=== PATIENT | male | born 1950 | race Caucasian/White ===

== ENCOUNTER → 2016-08-16 | Outpatient (CLI) | payer OTHER ==
--- NOTE | 2016-08-16 16:10 | CPEKG ---
Heart Rate: 55 RR Interval: 1091 P-R Interval: 188 QRSD Interval: 94 QT Interval: 384 QTC Interval: 368 P [place]: 2 QRS [place]: 69 T Wave [place]: -13 EKG Severity - BORDERLINE ECG - EKG Impression: SINUS RHYTHM EKG Impression: BORDERLINE,NONSPECIFIC ST ABNORMALITIES, INFERIOR LEADS Electronically Signed By: Fransico Powell 17-Aug-2016 12:25:25
== END ==
LOC: FCP 15:56
PROVIDERS: ATTEND Otolaryngology
DX: Z01.810 Encounter for preprocedural cardiovascular examination (principal)

== ENCOUNTER 2016-08-21 05:43 | Observation (INO) | payer OTHER ==
--- NOTE | 2016-08-11 18:07 | GHP ---
[f rep st] PREOP HISTORY AND PHYSICAL IDENTIFYING DATA: This is a 65-year-old. CHIEF COMPLAINT: Left parotid mass. HISTORY OF PRESENT ILLNESS: He has had a left preauricular, angle of the mandible mass for the last 10 years. It has slowly grown. He will undergo left lateral parotidectomy. He is otherwise in good health. PAST MEDICAL HISTORY: No heart attacks or strokes. MEDICATIONS: Viagra p.r.n. ALLERGIES: No known drug allergies. FAMILY HISTORY: Negative for any bleeding disorders or difficulty with anesthesia. PHYSICAL EXAMINATION: GENERAL: No acute distress. HEENT: A 3 cm mass in the left parotid. The oral cavity and oropharynx show no mucosal lesion. Neck without thyromegaly or lymphadenopathy. Facial strength is equal. LUNGS: Clear without wheezing. HEART: Regular rate and rhythm. No murmurs, gallops, or rubs. IMPRESSION: Left parotid mass. RECOMMENDATIONS: 1. Left lateral parotidectomy. I had a detailed discussion with the patient regarding the risks of bleeding, infection, anesthesia, damage to the facial nerve, salivary fistula, Enoch syndrome. We talked about the fact that the left earlobe would be permanently numb. We talked about the alternatives to this needle biopsy and a 2nd opinion. We talked about the benefits of removing it and send it to Pathology. He understands, agrees to proceed, and all questions were answered. 2. We will get a 12-lead EKG. /[id number]/MODL MTDD
[2016-08-21] MEDS ORDERED: ceFAZolin 2 GM/DEXTROSE 100 ML IV ONE (06:00)
[2016-08-21] MEDS ORDERED: LIDOCAINE 1% 5 ML SDV ONE (06:46)
[2016-08-21] MEDS ORDERED: BUPIVACAINE 0.5% 30 ML SDV ONE (07:01)
[2016-08-21] MEDS ORDERED: THROMBIN (RECOMBINANT) 5,000 UNIT VIAL TP ONE (07:01)
[2016-08-21] MEDS ORDERED: LR 1,000 ML IV ONE (07:02)
[2016-08-21] MEDS ORDERED: LIDOCAINE 1% 5 ML SDV ID PRN (07:02)
[2016-08-21] MEDS ORDERED: MIDAZOLAM 2 MG/2 ML VIAL ONE (07:11)
[2016-08-21] MEDS ORDERED: REMIFENTANIL HCL 1 MG VIAL ONE (07:11)
[2016-08-21] MEDS ORDERED: fentaNYL 250 MCG/5 ML INJ ONE (07:12)
[2016-08-21] MEDS ORDERED: PROPOFOL/EMULSION 500 MG/50 ML BOTTLE IV ONE (07:12)
[2016-08-21] MEDS ORDERED: PROPOFOL 200 MG/20 ML VIAL ONE ×4 (07:12→10:01)
[2016-08-21] MEDS ORDERED: LIDO/EPI 1% **Not for Epidural 20 ML MDV ONE (07:31)
[2016-08-21] MEDS ORDERED: LIDOCAINE 2% 5 ML SDV ONE (08:00)
[2016-08-21] MEDS ORDERED: DEXAMETHASONE 4 MG/ML VIAL ONE (08:00)
[2016-08-21] MEDS ORDERED: GLYCOPYRROLATE 0.2 MG/1 ML VIAL ONE (08:01)
[2016-08-21] MEDS ORDERED: ONDANSETRON 4 MG/2 ML VIAL ONE (08:06)
[2016-08-21] MEDS ORDERED: fentaNYL 100 MCG/2 ML INJ ONE (08:50)
[2016-08-21] MEDS ORDERED: ACETAMINOPHEN 500 MG TAB PO PRN (10:42)
[2016-08-21] MEDS ORDERED: NS W/ 20 KCl/L 1,000 ML IV SCH (10:45)
--- NOTE | 2016-08-21 11:38 | GOP ---
DATE OF OPERATION: 08/21/2016 SURGEON: Shakir Merino MD WEATHER FORCASTER: Micheal Bonilla MD ANESTHESIA: General endotracheal. PREOPERATIVE DIAGNOSIS: Left parotid mass. POSTOPERATIVE DIAGNOSIS: Pleomorphic adenoma. PROCEDURE PERFORMED: Left lateral parotidectomy with identification of the facial nerve. FINDINGS: 1. Positive identification of the facial nerve. 2. 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 3. Specimens as above. ESTIMATED BLOOD LOSS: 25 mL. DESCRIPTION OF PROCEDURE: The patient was placed in a supine position and orally endotracheally int ubated. We marked an incision in his left preauricular area and into his left neck. This was marke d in the preoperative holding area as well. We injected with 1% lidocaine with 1:100,000 epinephrin e. He was thoroughly prepped and draped. A 15 blade scalpel was used to come through the skin. We dissected over the parotid fascia. We freed off the sternocleidomastoid muscle and the tail of the parotid. We came down the cartilage over the mastoid tip and identified the tragal pointer. Using dissection 1 cm deep and inferior to the tragal pointer, we identified the facial nerve. The tumor was in the midportion of the parotid, and we found the mandibular branch and dissected superiorly, rotating the tumor superiorly, as we identified branches as we went. We did have to identify every branch as we went superior, including the buccal zygomatic eye branches and the frontal branches. O nce we identified the frontal branch, we removed the tumor and sent it to Pathology for frozen secti on analysis. This showed a 2.5 cm pleomorphic adenoma with clear margins. Hemostasis was achieved with bipolar. The wound was copiously irrigated and suctioned. A 10-Danish drain was placed deep t o the parotid. The drain was sewn in position with 3-0 nylon. The deep tissue was closed with 3-0 chromic. A running 5-0 nylon was used on the skin. He tolerated the procedure well and was in good condition at the end of the procedure. /[id number]/MODL
[2016-08-21] MEDS ORDERED: PETROLAT,WHT/MIN OIL/SOD CHL 3.5 GM OPHT.OINT EACHEYE PRN (17:43)
[2016-08-22 05:28] VITALS: TEMP 98.4; O2SAT 94
[2016-08-22 07:36] VITALS: BP 143/84; PULSE 62; RESP 18
[2016-08-22] MEDS ORDERED: FLU VACC QS 2016-17(3-64YR)/PF 0.5 ML SYR (FLUARIX QUAD) IM ONE (07:53)
--- NOTE | 2016-08-22 08:49 | SOAPPROG ---
SOAP Progress Note Assessment/Plan: Assessment: 65 year old male POD 1 s/p left parotidectomy. Doing well. Still with facial nerve weakness on left. Pain is under control. - Drain removed - D/c home this AM - He has prescription for percocet to go home with as well as lacrilube -- I discussed with patient to use lacrilube before bed and tape left eye shut - Follow-up 1 week for suture removal 08/22/16 08:47 Subjective: POD 1 s/p left parotidectomy. Doing well. Pain under control. Objective: Vital Signs Temp Pulse Resp BP Pulse Ox 36.9 C 62 18 143/84 H 94 08/22/16 07:35 08/22/16 07:35 08/22/16 07:35 08/22/16 07:35 08/22/16 07:35 08/21/16 08/22/16 08/23/16 05:59 05:59 05:59 Intake Total 2785 Output Total 890 Balance 1895 Voice strong, no stridor Still with facial nerve weakness on the left -- incomplete eye closure OP normal Drain output of 40 since surgery -- drain removed Incision clean/dry/intact ICD10 Worksheet Patient Problems: Problems Problem Status Onset H/O parotidectomy Acute - ICD10 Problem Qualifiers (1) H/O parotidectomy
== END 2016-08-22 10:32 | disposition home or self-care (01) ==
LOC: F3E 05:43
PROVIDERS: ADMIT Otolaryngology; ATTEND Otolaryngology
PROC: 0CB90ZX Excision of Left Parotid Gland, Open Approach, Diagnostic (ICD-10-PCS; principal; 2016-08-21 07:14)
DX: D11.9 Benign neoplasm of major salivary gland, unspecified (principal)
CPT/HCPCS: 42405; 90471; G0378; G0008; J0690; J1100; J2250; J2405; J2704; J3010

== ENCOUNTER 2017-10-01 17:00 | Observation (INO) | payer OTHER ==
--- NOTE | 2017-10-01 17:14 | CPEKG ---
Heart Rate: 94 RR Interval: 638 P-R Interval: 188 QRSD Interval: 88 QT Interval: 360 QTC Interval: 451 P [place]: 72 QRS [place]: 49 T Wave [place]: -7 EKG Severity - BORDERLINE ECG - EKG Impression: SINUS RHYTHM EKG Impression: BORDERLINE T ABNORMALITIES, INFERIOR LEADS EKG Impression: Similar to previous Electronically Signed By: Hansel Rosenbaum 01-Oct-2017 17:37:18
[2017-10-01] MEDS ORDERED: NS 2,400 ML IV ONE (17:33)
--- NOTE | 2017-10-01 17:36 | EDPHY ---
H & P Stated Complaint: chest pain starting around 1300 Time Seen by Provider: 10/01/17 17:21 HPI/ROS: CHIEF COMPLAINT: Chest pain HISTORY OF PRESENT ILLNESS: Patient is a 67-year-old man who comes to the emergency department with his significant other complaining of pleuritic chest pain on the left side. The patient was seen at an urgent care in [place] on Sunday and had a chest x-ray which revealed a right upper lobe pneumonia. He had a fever and shortness of breath and cough at the time. He was started on azithromycin. Today he began complaining of left-sided pain with deep inspiration. His states that he was short of breath and can't ink and tell he took some Percocet and his pain improved. He also fever of 100.8 today. He was seen at Dr. Flores's office who sent him here to rule out PE. The patient did have a rotator cuff surgery 2 months ago here as well as multiple teeth removal 1 month ago. He was on amoxicillin for the procedure. He does not have any cardiac history. No leg pain or swelling. No diaphoresis or nauseous. REVIEW OF SYSTEMS: Constitutional: denies: chills, fever, recent illness, recent injury EENTM: denies: blurred vision, double vision, nose congestion Respiratory: See HPI Cardiac: See HPI Gastrointestinal/Abdominal: denies: abdominal pain, diarrhea, nausea, vomiting, blood streaked stools Genitourinary: denies: dysuria, frequency, hematuria, pain Musculoskeletal: denies: joint pain, muscle pain Skin: denies: lesions, rash, jaundice, bruising Neurological: denies: headache, numbness, paresthesia, tingling, dizziness, weakness Hematologic/Lymphatic: denies: blood clots, easy bleeding, easy bruising Immunologic/allergic: denies: HIV/AIDS, transplant EXAM: GENERAL: Well-appearing, well-nourished and in no acute distress. HEAD: Atraumatic, normocephalic. EYES: Pupils equal round and reactive to light, extraocular movements intact, sclera anicteric, conjunctiva are normal. ENT: TMs normal, nares patent, oropharynx clear without exudates. Moist mucous membranes. NECK: Normal range of motion, supple without lymphadenopathy or JVD. LUNGS: Breath sounds clear to auscultation bilaterally and equal. No wheezes rales or rhonchi. HEART: Regular rate and rhythm without murmurs, rubs or gallops. ABDOMEN: Soft, nontender, normoactive bowel sounds. No guarding, no rebound. No masses appreciated. BACK: No CVA tenderness, no spinal tenderness, step-offs or deformities EXTREMITIES: Normal range of motion, no pitting or edema. No clubbing or cyanosis. NEUROLOGICAL: Cranial nerves II through XII grossly intact. Normal speech, normal gait. 5/5 strength, normal movement in all extremities, normal sensation PSYCH: Normal mood, normal affect. SKIN: Warm, dry, normal turgor, no visible rashes or lesions. Source: Patient Exam Limitations: No limitations - Medical/Surgical History Hx Asthma: No Hx Chronic Respiratory Disease: No Hx Diabetes: No Hx Cardiac Disease: No Hx Renal Disease: No Hx Cirrhosis: No Hx Alcoholism: No Hx HIV/AIDS: No Hx Splenectomy or Spleen Trauma: No Other PMH: appendectomy, facial fx repair, hernia repair, elbow surgery, lower back pain r/t stenosis, scoliosis, carcinoma removal right arm pit - Family History Significant Family History: No pertinent family hx - Social History Smoking Status: Former smoker Alcohol Use: Sober Drug Use: None Constitutional: Initial Vital Signs Temperature (C) 38.5 C H 10/01/17 17:03 Heart Rate 100 10/01/17 17:03 Respiratory Rate 20 10/01/17 17:03 Blood Pressure 127/84 H 10/01/17 17:03 O2 Sat (%) 94 10/01/17 17:03 O2 Delivery Mode Room Air Allergies/Adverse Reactions: No Known Allergies Allergy (Verified 10/01/17 17:02) Home Medications: Medication Instructions Recorded Sildenafil Citrate [Viagra] 50 mg PO DAILY PRN 08/21/16 Acetaminophen [Tylenol ES 500 mg 500 mg PO Q6HRS PRN #0 tab 08/22/16 (*)] Petrolat,Wht/Min Oil/Sod Chl 1 amina EACHEYE HS PRN #0 opht.oint 08/22/16 [Refresh P.m. Ointment] Azithromycin [Zithromax] 250 mg PO DAILY 10/01/17 Herbals/Supplements -Info Only 1 ea PO DAILY 10/01/17 Meloxicam [Mobic 15 mg] 15 mg PO DAILY 10/01/17 oxyCODONE IR [Oxycodone Ir (*)] 5 mg PO DAILY PRN 10/01/17 Medical Decision Making - Diagnostics EKG Interpretation: An EKG obtained and was read and documented in trace view. Please see trace view for full reading and report. Sinus rhythm, no acute ischemic changes, T- wave inversions inferiorly similar to previous Imaging Results: Imaging Impressions Chest/Thorax CTA 10/01/17 17:33 Impression: 1. Bilateral pulmonary emboli without evidence of right heart strain. 2. Right upper lobe pneumonia. 3. Multinodular goiter. Recommend follow-up thyroid ultrasound. Dr. Baugh discussed these findings by telephone with YOUNG ROSENBAUM on 2017 at 1840 hours. Imaging: Discussed imaging studies w/ inventory control/shipping receiving Radiologist ED Course/Re-evaluation: The patient has pneumonia and bilateral PE. I will change him to Levaquin and start him on heparin drip and admit to the medical service. 6:50 p.m. I discussed the case with Angely Baum who will admit to the medical service. The patient meets criteria for sepsis but not severe sepsis Differential Diagnosis: Partial list of the Differential diagnosis considered include but were not limited to; PE, pneumonia, sepsis and although unlikely based on the history and physical exam, I also considered acute coronary disease, dissection. Critical Care Time: Critical care time spent by me, Dr. Rosenbaum exclusive with this patient was 35 minutes, exclusive of the PA time exclusive of procedures. The organ system that was at risk was pulmonary and I gave diagnosed 6, medications, consultation and admission to prevent worsening of the patient's condition - Data Points Laboratory Results: Laboratory Results 10/01/17 17:22 10/01/17 17:22 10/01/17 10/01/17 10/01/17 17:22 17:22 17:22 WBC RBC Hgb Hct MCV MCH MCHC RDW Plt Count MPV Neut % (Auto) Lymph % (Auto) [place] % (Auto) Eos % (Auto) Baso % (Auto) Nucleat RBC Rel Count Absolute Neuts (auto) Absolute Lymphs (auto) Absolute Monos (auto) Absolute Eos (auto) Absolute Basos (auto) Absolute Nucleated RBC Immature Gran % Immature Gran # PT 14.0 SEC SEC (12.0-15.0) INR 1.06 (0.83-1.16) APTT 29.9 SEC SEC (23.0-38.0) VBG Lactic Acid 1.3 mmol/L mmol/L (0.7-2.1) Sodium 141 mEq/L mEq/L (135-145) Potassium 4.6 mEq/L mEq/L (3.5-5.2) Chloride 102 mEq/L mEq/L (97-110) Carbon Dioxide 27 mEq/l mEq/l (22-31) Anion Gap 12 mEq/L mEq/L (8-16) BUN 16 mg/dL mg/dL (7-23) Creatinine 1.0 mg/dL mg/dL (0.7-1.3) Estimated GFR > 60 Glucose 136 mg/dL H mg/dL (70-100) Calcium 9.0 mg/dL mg/dL (8.5-10.4) Total Bilirubin 1.2 mg/dL mg/dL (0.1-1.4) Conjugated Bilirubin 0.6 mg/dL H mg/dL (0.0-0.5) Unconjugated Bilirubin 0.6 mg/dL mg/dL (0.0-1.1) AST 22 IU/L IU/L (17-59) ALT 44 IU/L IU/L (21-72) Alkaline Phosphatase 94 IU/L IU/L (38-126) Troponin I < 0.012 ng/mL ng/mL (0.000-0.034) Total Protein 6.1 g/dL L g/dL (6.3-8.2) Albumin 3.6 g/dL g/dL (3.5-5.0) 10/01/17 17:22 WBC 12.05 10^3/uL H 10^3/uL (3.80-9.50) RBC 4.76 10^6/uL 10^6/uL (4.40-6.38) Hgb 15.8 g/dL g/dL (13.7-17.5) Hct 46.0 % % (40.0-51.0) MCV 96.6 fL fL (81.5-99.8) MCH 33.2 pg pg (27.9-34.1) MCHC 34.3 g/dL g/dL (32.4-36.7) RDW 12.8 % % (11.5-15.2) Plt Count 233 10^3/uL 10^3/uL (150-400) MPV 9.6 fL fL (8.7-11.7) Neut % (Auto) 80.7 % H % (39.3-74.2) Lymph % (Auto) 8.0 % L % (15.0-45.0) [place] % (Auto) 10.5 % % (4.5-13.0) Eos % (Auto) 0.2 % L % (0.6-7.6) Baso % (Auto) 0.2 % L % (0.3-1.7) Nucleat RBC Rel Count 0.0 % % (0.0-0.2) Absolute Neuts (auto) 9.72 10^3/uL H 10^3/uL (1.70-6.50) Absolute Lymphs (auto) 0.96 10^3/uL L 10^3/uL (1.00-3.00) Absolute Monos (auto) 1.26 10^3/uL H 10^3/uL (0.30-0.80) Absolute Eos (auto) 0.03 10^3/uL 10^3/uL (0.03-0.40) Absolute Basos (auto) 0.03 10^3/uL 10^3/uL (0.02-0.10) Absolute Nucleated RBC 0.00 10^3/uL 10^3/uL (0-0.01) Immature Gran % 0.4 % % (0.0-1.1) Immature Gran # 0.05 10^3/uL 10^3/uL (0.00-0.10) PT INR APTT VBG Lactic Acid Sodium Potassium Chloride Carbon Dioxide Anion Gap BUN Creatinine Estimated GFR Glucose Calcium Total Bilirubin Conjugated Bilirubin Unconjugated Bilirubin AST ALT Alkaline Phosphatase Troponin I Total Protein Albumin Microbiology Results: MICROBIOLOGY 10/01/17 17:53 Nasal, Sinus - Swab Respiratory Panel (PCR) - Final No Organism Detected Medications Given: Oxycodone HCl (Oxycodone Ir) 5 - 10 mg PO Q4HRS PRN PRN Reason: Pain, Severe Able to Take PO Stop: 10/11/17 21:34 Last Admin: 10/01/17 21:40 Dose: 5 mg Discontinued Medications Heparin Sodium (Porcine) (Heparin Injection) 0 unit IVP EDNOW ONE PRN Reason: Protocol Stop: 10/01/17 18:43 Last Admin: 10/01/17 19:13 Dose: 4,900 units Sodium Chloride (Ns) 2,400 mls @ 4,800 mls/hr 30 ml/kg infuse over 30 min ( 2400 ml) IV EDNOW ONE PRN Reason: Protocol Stop: 10/01/17 18:02 Last Admin: 10/01/17 17:50 Dose: 2,400 mls Heparin Sodium (Porcine) (Heparin 50 Units/Ml (Premix)) 500 mls @ 0 mls/hr IV EDNOW ONE; Per Protocol PRN Reason: Protocol Stop: 10/01/17 18:43 Last Admin: 10/01/17 19:14 Dose: 500 mls Levofloxacin/Dextrose (Levaquin 750 Mg (Premix)) 150 mls @ 100 mls/hr IV EDNOW ONE PRN Reason: Protocol Stop: 10/01/17 20:11 Last Admin: 10/01/17 19:12 Dose: 150 mls Departure - Departure Disposition: [facility] Acute Clinical Impression: Pneumonia of right upper lobe due to infectious organism, Pulmonary embolism, bilateral Sepsis Qualifiers: Sepsis type: sepsis due to unspecified organism Qualified Code(s): A41.9 - Sepsis, unspecified organism Condition: Fair
[2017-10-01] MEDS ORDERED: IOPAMIDOL (ISOVUE 370) 100 ML BTL IV ONE (17:47)
[2017-10-01 17:58] LABS: INR 1.06 (0.83-1.16)
[2017-10-01 17:59] LABS: PLATELET COUNT 233 10^3/uL (150-400)
[2017-10-01] MEDS ORDERED: HEPARIN/DEXTROSE 500 ML IV ONE (18:42)
[2017-10-01] MEDS ORDERED: HEPARIN 10,000 UNIT/10 ML MDV (1,000 UNIT/ML) IVP ONE (18:42)
[2017-10-01] MEDS: HEPARIN/DEXTROSE 500 ML IV SCH (21:15)
[2017-10-01] MEDS: oxyCODONE IR 5 MG TAB PO PRN ×2 (21:40→22:57)
[2017-10-01] MEDS ORDERED: ACETAMINOPHEN 325 MG TAB PO PRN (22:35)
[2017-10-01] MEDS ORDERED: oxyCODONE IR 5 MG TAB PO PRN (22:35)
[2017-10-01] MEDS ORDERED: ONDANSETRON 4 MG/2 ML VIAL IVP PRN (22:35)
--- NOTE | 2017-10-01 23:24 | GHP ---
[f rep st] HISTORY AND PHYSICAL DATE OF ADMISSION: 10/01/2017 CHIEF COMPLAINT: Pleuritic chest pain. HISTORY: The patient is a 67-year-old male, who developed pleuritic chest pain 2 days ago while he w as in [place]. He was seen at an urgent care, and chest x-ray had an infiltrate. He was diagnose d with a right upper lobe pneumonia and started on azithromycin. He has persistence of severe pleuri tic chest pain that is not improving so he is now back to the emergency room. Last Sunday he drov e 8 hours straight into [place] to visit his father. He drove back on Sunday, which is yesterday. He is having some low-grade fever, 100.8, and shortness of breath with no cough. He had rotator cu ff surgery 2 months ago. He denies any lower extremity edema. This is pleuritic chest pain on the l eft side, his left lower chest, very severe, radiating to his shoulder requiring narcotics for relief . PAST MEDICAL HISTORY: 1. 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 2. Low back pain secondary to spinal stenosis. PAST SURGICAL HISTORY: Appendectomy and hernia surgery. MEDICATIONS: Please see computer record for full detailed list. ALLERGIES: No known drug allergies. SOCIAL HISTORY: Quit smoking 35 years ago. No alcohol. He lives with his girlfriend/partner. 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 REVIEW OF SYSTEMS: Complete review of system obtained. Review of systems negative on constitutional , HEENT, GI, pulmonary, cardiovascular, , hematology, skin, muscular, endocrine, psych except for p ositives as noted in HPI. FAMILY HISTORY: Reviewed, noncontributory to presenting complaint. PHYSICAL EXAMINATION: GENERAL: Well-developed, well-nourished male, in no distress. VITAL SIGNS: T emperature 37.9, pulse 112, blood pressure 126/74, saturating 92% on room air. EYES: Normal conjunct ivae. Pupils react to light. ENT: Normal ears, nose. Hearing intact. Normal teeth. Oropharynx m oist. NECK: Trachea midline. No thyromegaly. CHEST: Normal effort. LUNGS: Clear to auscultation bilaterally. CARDIOVASCULAR: Regular rate and rhy thm. No murmur. No extremity edema. ABDOMEN: Soft, nontender. No hepatosplenomegaly. SKIN: Warm , dry, intact. No rash. MUSCULOSKELETAL: No cyanosis or clubbing. Strength 5/5 upper and lower ex tremities. NEURO: Cranial nerves intact. Normal sensation to light touch. PSYCH: Alert and orien eleanor x3. Normal mood and affect. Normal judgment. Normal memory. LABORATORY DATA: White count 12.05, hematocrit 46, platelets 233. Sodium 141, potassium 4.6, chlori de 102, bicarb 27, BUN 16, creatinine 1.0, glucose 136. LFTs are negative. Troponins negative. INR is 1.06. Lactate is 1.3. EKG viewed by me. My personal interpretation is normal sinus rhythm. No ST-T wave changes. CT angiogram of the chest shows bilateral pulmonary emboli. Right upper lobe in filtrate. Multinodular goiter. ASSESSMENT/PLAN: 1. Pulmonary embolus. I suspect the infiltrate is a pulmonary infarct rather than pneumonia. I mckinley l hold off on further antibiotics. He was started on IV heparin in the emergency room, which I will continue. He can be changed to an oral agent when he is ready for discharge. He continues to have s evere pleuritic chest pain requiring narcotics. He can get a hypercoagulable workup as an outpatient , although I do think this is a provoked event secondary to his 8-hour car ride, which he did without any breaks. 2. Multinodular goiter. We will check a TSH and this should be followed up as an outpatient. CODE STATUS: Full. ADMISSION STATUS: Will admit to observation. Reevaluate tomorrow regarding ongoing need for hospita lization. DVT PROPHYLAXIS: Treatment for PE as discussed above. /[id number]/MODL
[2017-10-02] MEDS: HEPARIN 10,000 UNIT/10 ML MDV (1,000 UNIT/ML) IVP PRN ×2 (02:46→10:39)
[2017-10-02] MEDS: oxyCODONE IR 5 MG TAB PO PRN ×5 (02:50→21:28)
[2017-10-02] MEDS ORDERED: AZITHROMYCIN 250 MG TAB PO SCH (09:00)
[2017-10-02] MEDS ORDERED: Meloxicam [Mobic] 15 MG PO SCH (09:00)
[2017-10-02 09:48] LABS: PLATELET COUNT 203 10^3/uL (150-400)
--- NOTE | 2017-10-02 12:19 | ASMTCMCOM ---
CM Note CM Note Notes: 10/02/2017 Case Management Note Met pt and significant other Ivet during multi disciplinary rounds this morning. Pt admitted for bilateral PE and possible PNA. There are no OT or PT evals ordered at this time, pt is ambulating without difficulty in the room. Pt reports having all teeth pulled in the last month and is now using dentures. There are no identified case management d/c needs at this time. Pt was independent prior to admission and has strong family support. Case Management d/c poc: independent with follow up as directed. Case Management available if needs change. Date Signed: 10/02/2017 12:18 PM Electronically Signed By:Gertrude Sotomayor RN
--- NOTE | 2017-10-02 12:30 | HOSPPROG ---
Hospitalist Progress Note Assessment/Plan: Relatively healthy 67-year-old found to have PE after presenting with chest pain. He was initially treated in [place] with Zithromax for presumed bronchitis however CT angiogram here did confirm pulmonary embolus. Risk factors includes shoulder surgery in early July and recent car travel. # pulmonary embolus: Discussed disease management with patient and * Start Xarelto which is approved by his insurance * Patient should follow up with his primary care provider for ongoing care within a week after discharge * He will need an additional midnight stay due to uncontrolled chest pain from his pulmonary embolus # history of back pain # history of multiple dental issues, he recently had complete tooth extraction and is planning on having permanent dentures placed eventually. At this time that will need to be put on hold because he will need uninterrupted blood thinners for at least 3 months. He can follow up with Dr. Flores as an outpatient to discuss this. Subjective: Patient new to ar and chart reviewed. Complains of 10/10 chest pain when he sits up to eat. More comfortable when lying down. Objective: Vital Signs Temp Pulse Resp BP Pulse Ox 37.2 C 78 18 111/69 97 10/02/17 07:36 10/02/17 07:36 10/02/17 07:36 10/02/17 07:36 10/02/17 07:36 Laboratory Results 10/02/17 09:25 10/01/17 10/02/17 10/03/17 05:59 05:59 05:59 Intake Total 2150 400 Output Total 300 625 Balance 1850 -225 PT 14.0 SEC (12.0-15.0) 10/01/17 17:22 INR 1.06 (0.83-1.16) 10/01/17 17:22 - Physical Exam Constitutional: uncomfortable Eyes: PERRL, EOMI Ears, Nose, Mouth, Throat: moist mucous membranes Cardiovascular: regular rate and rhythym Respiratory: no respiratory distress, clear to auscultation Gastrointestinal: normoactive bowel sounds Genitourinary: no bladder fullness Skin: warm, normal color Musculoskeletal: full muscle strength Neurologic: AAOx3 Psychiatric: interacting appropriately, not anxious ICD10 Worksheet Patient Problems: Problems Problem Status Onset H/O parotidectomy Acute Pneumonia of right upper lobe due to infectious organism Acute Pulmonary embolism, bilateral Acute Sepsis Acute
[2017-10-02] MEDS: HEPARIN/DEXTROSE 500 ML IV SCH (12:54)
[2017-10-02] MEDS: RIVAROXABAN 15 MG TAB PO SCH (18:18)
[2017-10-03] MEDS: RIVAROXABAN 15 MG TAB PO SCH (08:25)
[2017-10-03] MEDS ORDERED: PNEUMOC 13-VAL CONJ-DIP CRM/PF 0.5 ML SYR IM ONE (09:00)
[2017-10-03 11:31] VITALS: BP 111/58
--- NOTE | 2017-10-03 23:37 | GDS ---
[f rep st] DISCHARGE SUMMARY DISCHARGE DIAGNOSES: 1. Pulmonary embolism. 2. History of back pain. 3. History of multiple dental issues. 4. Multinodular goiter. CONSULTANTS: None. IMAGING STUDIES/PROCEDURES: 1. CT pulmonary angiogram October 01, 2017, showed bilateral pulmonary emboli without evidence of right heart strain, as well as incidental multinodular goiter. Will need outpatient thyroid ultrasound vi a PCP. HISTORY OF DETAILS: Please see the history and physical dated October 01, 2017. In brief, the patient is a 67-year-old male who presented to the emergency department with pleuritic chest pain. He was di agnosed with bilateral pulmonary emboli by CT angiogram and was admitted to the hospital for further management. There was initially some question about pneumonia, though this is more likely a pulmonar y infarct, rather than pneumonia. He was initially treated with IV heparin. He was then changed to oral Xarelto. His pain symptoms have significantly improved. I discussed the dosing of Xarelto at d ischarge, which is 15 mg twice daily for a total of 21 days, then 20 mg once daily. We discussed the bleeding risk and increased risk of injury and bleeding with activities such as river rafting, which he plans to do this summer. I suspect this was a provoked event, given his 8-hour car ride without taking any stops. He is also 2 months postop. In addition, he was found to have an incidental multi nodular goiter on imaging, and this should be followed up by his primary care physician for an outpat ient thyroid ultrasound. He does have a normal TSH at 1.92. DISPOSITION: Patient is discharged home in stable condition. FOLLOWUP: Dr. Bonilla Flores, primary care in 5-7 days. DISCHARGE MEDICATIONS: Please see [facility] for completed outpatient medication list. New medications on discharge include: 1. Xarelto 15 mg p.o. twice daily #40, no refills. 2. Xarelto 20 mg p.o. daily #30, no refills, after completing the above script. Discontinued medications include Mobic, azithromycin, and oxycodone. /[id number]/MODL
== END 2017-10-03 12:27 | disposition home or self-care (01) ==
LOC: F2W 20:18
PROVIDERS: ADMIT Internal Medicine; ATTEND Hospitalist
DX: I26.99 Other pulmonary embolism without acute cor pulmonale (principal); E04.2 Nontoxic multinodular goiter; M54.5 Low back pain; K08.9 Disorder of teeth and supporting structures, unspecified; Z87.891 Personal history of nicotine dependence; Z23 Encounter for immunization; Z85.828 Personal history of other malignant neoplasm of skin
CPT/HCPCS: 71275; 90471; 93005; 96361; 96365; 96368; 96375; 99291; G0378; 85520-90; G0009; J1644; J1956; Q9967

== ENCOUNTER 2017-10-06 18:59 | Emergency (ER) | payer OTHER ==
--- NOTE | 2017-10-06 20:26 | EDPHY ---
H & P Time Seen by Provider: 10/06/17 19:55 HPI/ROS: CHIEF COMPLAINT: Heel pain HISTORY OF PRESENT ILLNESS: Patient complaining of pain, redness, swelling to left heel. He states he had a blister about 2 weeks ago but it"healed up". He noticed last Sunday, 3 days ago, the heel area is getting more painful and swollen. Today much worse. No fevers but some chills. Patient also with complex recent medical history as he was diagnosed with bilateral multiple small pulmonary emboli on Sunday of last week. He was started on Xarelto. Also recent shoulder surgery July 27 as well as all of his teeth were removed on August 30. He does deny chest pain or shortness of breath. Has had 10 lb weight loss. REVIEW OF SYSTEMS: Negative except per HPI. General Appearance: Alert, no distress. Eyes: Pupils equal and round no icterus Respiratory: No respiratory distress Neurological: Awake, alert, no focal deficits. Abdomen: Soft nontender. Skin: Warm and dry, no rashes. Musculoskeletal: Neck is supple nontender. Extremities are symmetrical, full range of motion, no edema. Left heel with resolving blister. Erythema, induration, tenderness diffusely to the heel and up to the base of the Achilles tendon. No red streaks. Rest of foot exam normal with good pulses, sensation, movement. Psychiatric: Patient is oriented X 3, there is no agitation. Medical/surgical history: Pulmonary embolism, multiple ortho surgeries, appendectomy, hernia surgery, facial surgery. Social history: Lives in the [facility] with . Nonsmoker. Smoking Status: Former smoker Constitutional: Initial Vital Signs Temperature (C) 36.8 C 10/06/17 19:08 Heart Rate 70 10/06/17 19:08 Respiratory Rate 18 10/06/17 19:08 O2 Sat (%) 95 10/06/17 19:08 O2 Delivery Mode Room Air Allergies/Adverse Reactions: No Known Allergies Allergy (Verified 10/06/17 19:08) Home Medications: Medication Instructions Recorded Sildenafil Citrate [Viagra] 50 mg PO DAILY PRN 08/21/16 Acetaminophen [Tylenol ES 500 mg 500 mg PO Q6HRS PRN #0 tab 08/22/16 (*)] Petrolat,Wht/Min Oil/Sod Chl 1 amina EACHEYE HS PRN #0 opht.oint 08/22/16 [Refresh P.m. Ointment] Rivaroxaban [Xarelto 15mg (*)] 15 mg PO BIDMEAL #40 tab 10/03/17 Rivaroxaban [Xarelto] 20 mg PO DAILY #30 tab 10/03/17 Cephalexin [Keflex (*)] 500 mg PO Q6H #28 cap 10/06/17 Sulfamethox/Tmp 800/160 mg 1 tab PO BID #14 tab 10/06/17 [Bactrim Ds] Medical Decision Making Differential Diagnosis: Differential diagnosis includes cellulitis, abscess, thromboembolic disorder, gout. After evaluation suspicious for cellulitis. No evidence of worsening thromboembolic disease. No systemic symptoms to suggest deep space infection. Will start on antibiotics. Recommended close follow-up with primary care. Discussed return precautions. Departure - Departure Clinical Impression: Cellulitis and abscess of foot, except toes Condition: Fair Instructions: Cellulitis (ED) Additional Instructions: Take antibiotics as prescribed. Warm soaks 2 times daily. Follow up with the primary care physician early next week without fail. Referrals: KELLY OHARA [Primary Care Provider] - As per Instructions Prescriptions: Cephalexin [Keflex (*)] 500 mg PO Q6H #28 cap Sulfamethox/Tmp 800/160 mg [Bactrim Ds] 1 tab PO BID #14 tab
[2017-10-06] MEDS ORDERED: CEPHALEXIN 500MG PREPACK#4 BTL TAKEHOME ONE (20:27)
[2017-10-06] MEDS ORDERED: CEPHALEXIN 500 MG CAP PO ONE (20:27)
[2017-10-06 20:28] VITALS: BP 112/68
[2017-10-06] MEDS ORDERED: SULFAMETHOX/TMP 800/160 MG 1 TAB PO ONE (20:28)
[2017-10-06] MEDS ORDERED: SULFAMET/TMP DS PREPACK#2 BTL TAKEHOME ONE (20:28)
== END 2017-10-06 20:57 | disposition home or self-care (01) ==
DX: L02.612 Cutaneous abscess of left foot (principal); L03.116 Cellulitis of left lower limb; Z87.891 Personal history of nicotine dependence